=== PATIENT | male | born 1960 | race Caucasian/White ===

== ENCOUNTER 2019-11-07 02:58 | Emergency (ER) | payer OTHER ==
[~2019-11-07] VITALS: Ht 188 cm; Wt 117.9 kg
[2019-11-07] MEDS ORDERED: LORCET 5-325 M1 EACH PO (03:08)
[2019-11-07] MEDS ORDERED: IBUPROFEN200 M1 PO (03:08)
[2019-11-07 03:30] VITALS: BP 142/68
== END 2019-11-07 03:40 | disposition home or self-care (01) ==
LOC: ER 02:58
DX: R06.02 Shortness of breath (principal); R07.0 Pain in throat; Z57.2 Occupational exposure to dust; Z79.899 Other long term (current) drug therapy; Z88.5 Allergy status to narcotic agent; Z88.0 Allergy status to penicillin; Z88.8 Allergy status to other drugs, medicaments and biological substances; Z88.2 Allergy status to sulfonamides; Z87.891 Personal history of nicotine dependence; Z59.0 Homelessness